=== PATIENT | male | born 1940 | race Caucasian/White ===

== ENCOUNTER 2017-03-18 13:00 | Inpatient (IN) | payer MEDICARE, OTHER ==
[~2017-03-18] VITALS: Ht 152.4 cm; Wt 57.9 kg
--- NOTE | ~2017-03-18 | ECHO ---
Transthoracic Echocardiography Report (TTE) Demographics Patient Name SALEEM SOLARES Date of Study 03/19/2017 Patient Number [id number] Visit Number [id number] Date of 1940 Room Number [id number] Gender Male Number Age 76 year(s) Referring Myles Chang Hiv/Aids Care Nurse Yesica Chinchilla RVT Physician Physician Interpreting Bryson Warren Carding Supervisor Physician A Supervising Ordering Myles Chang MD/MLP Physician MD Nurse Stress Blue Print Control Clerk Conclusions Contractility Score Summary Global Left Ventricular Hypokinesis was noted. Summary Technically difficult exam. The estimated left ventricular ejection fraction is 20-25%. Diastolic assessment reveals Grade I diastolic dysfunction. Large vegetation on the mitral valve especially the posterior leaflet Mild to moderate mitral annular calcification. Mild to moderate calcification of the mitral valve. Mild mitral regurgitation by color Doppler. Procedure Type of Study TTE procedure:2D Echocardiogram. Procedure Date Date: 03/19/2017 Start: 10:34 AM Study Location: Inpatient Portable Technical Quality: Limited visualization due to patient immobility. Indications:CVA. Appropriate Use Criteria: 0 Patient Status: Routine HR: 90 bpm M-Mode/2D Measurements LV Diastolic Dimension: 3.73 cm LV Systolic Dimension: 2.98 cm Cardiac Output: 3.19 l/min AV Cusp Separation: 1.2 cm LVOT: 1.9 cm RV Base: 2.77 cm LVOT VTI: 12.5 cm RV Mid: 2.59 cm LV Stroke volume: 35.42 ml TAPSE: 1.56 cm TDI-S': 17.4 cm/s Doppler Measurements AV Peak Velocity: 1.45 m/s MV Peak E-Wave: 0.7 m/s AV Peak Gradient: 8.41 mmHg MV Peak A-Wave: 0.88 m/s AV Mean Gradient: 3 mmHg MV E/A Ratio: 0.79 LVOT Peak Velocity: 0.78 m/s MV P1/2t: 53 msec E' Septal Velocity: 0.05 m/s A' Septal Velocity: 0.09 m/s E' Lateral Velocity: 0.08 m/s A' Lateral Velocity: 0.11 m/s Findings Left Ventricle Diastolic assessment reveals Grade I diastolic dysfunction. Right Ventricle Normal right ventricle structure and function. Left Atrium Normal left atrial size. Right Atrium IVC measures .91 cm with inspiratory collapse. Mitral Valve Large vegetation on the mitral valve especially the posterior leaflet Mild to moderate mitral annular calcification. Mild to moderate calcification of the mitral valve. Mild mitral regurgitation by color Doppler. Aortic Valve The aortic valve was not well imaged. Tricuspid Valve Normal tricuspid valve structure and function. Pulmonic Valve The pulmonic valve is not well visualized. Pericardial Effusion No pericardial effusion. Miscellaneous Visualized portions of the aortic root and ascending aorta appear normal in size. Pleural Effusion No evidence of pleural effusion. Contractility Score LV regional wall motion:(0-Non visualized 1-Normal 2-Hypokinesis 3-Akinesis 4-Dyskinesis 5-Aneurysm) Signature dtt: Hugh Massey dtd: 03/19/17 1034 Physician Self Edit
--- NOTE | ~2017-03-18 | HP ---
PATIENT'S NAME: SALEEM SOLARES [facility] AGE: 76 Y [address] [place]: [id number] [address] LOCATION: [facility] ADMIT DATE: 03/18/2017 History & Physical DISCHARGE DATE: FAMILY PHYSICIAN: PHYSICIAN, UNKNOWN ATTENDING PHYSICIAN: STELLA BEST DATE OF SERVICE: CHIEF COMPLAINT: CVA. HISTORY OF PRESENT ILLNESS: The patient is a 76-year-old gentleman with a recent history of stroke, history of lung nodules suspicious for malignancy, tobacco use, with possible COPD and recently diagnosed hypertension, who presents here from [place] with a CVA. The patient was recently diagnosed with transient speech difficulty and left hand numbness and poor coordination. CT showed possible stroke and was discharged to home with aspirin and blood pressure medications. However, today he presents to [facility] with right-sided weakness. Apparently from the chart, the patient was found to be in good health around 10:30 p.m. yesterday. Around 7:00 a.m. this morning, he was found by a family member to have aphasia and right upper extremity weakness. The patient was brought into the emergency department and had a CT head done that shows stable left posterior parietal occipital infarction and left cerebral infarction. The patient was transferred to our hospital for further workup. The patient is currently aphasic and is not able to talk. The patient responds yes or no. Apparently, the patient has not being following doctors since his last visit with his CVA like symptoms on the 15 of March. The patient was discharged to home with low-dose aspirin. However, when asked if patient took his medication after he was discharged from the hospital, he denies of taking it. The patient also was found to have a spiculated lesion in the left suprahilar region consistent with malignancy, encasement of the left upper lobe bronchus was also present. This is secondary to left hilar mass and adenopathy. Also shows emphysematous changes. This CT was done as a screening due to tobacco use. The patient is nonverbal but, however, follows commands. He denies any headache, chest pain, shortness of breath, fever, productive cough, abdominal pain, nausea, vomiting, diarrhea, weight loss, weight gain, night sweats, or poor appetite. FAMILY HISTORY: Father at age 73 due to cancer. SOCIAL HISTORY: He smokes every day. He has fifty years pack per year smoking history. PATIENT'S NAME: SALEEM SOLARES [facility] AGE: 76 Y [address] ROOM: [id number] [place], [place] [address] LOCATION: [facility] ADMIT DATE: 03/18/2017 History & Physical DISCHARGE DATE: FAMILY PHYSICIAN: PHYSICIAN, UNKNOWN ATTENDING PHYSICIAN: STELLA BEST PAST MEDICAL HISTORY: 1. Recent diagnosis of lung mass suspicious for cancer. 2. Recent diagnosis of hypertension. 3. Recent diagnosis of CVA. 4. History of abdominal aortic aneurysm. All these were found from the chart that was sent from [facility]. PAST SURGICAL HISTORY: No surgical history. REVIEW OF SYSTEMS: All systems have been reviewed and are negative except for what I mentioned in the HPI. MEDICATIONS: Currently not taking any medication. PHYSICAL EXAMINATION: VITAL SIGNS: Blood pressure 136/71, pulse of 79, respiratory rate of 15, and saturating 96% on room air. GENERAL APPEARANCE: The patient is cachectic, lying on bed. HEENT: Head; normocephalic and atraumatic. Eyes; extraocular muscles intact. Nose; no nasal discharge. Ears; no ear discharge. Oral Cavity; moist oral cavity. LUNGS: Clear to auscultation bilaterally. HEART: Regular rate and rhythm. No murmurs, rubs, or gallops. ABDOMEN: Soft, nontender, and nondistended. Bowel sounds present. SKIN: Warm to touch. MUSCULOSKELETAL: Range of motion intact. No obvious joint effusion noted. HYDROGEOLOGIST: The patient is aphasic. NEUROLOGIC: Right upper extremity strength is 3 to 4/5. Right lower extremity strength is 4/5. LABORATORY DATA AND IMAGING STUDIES: Labs done from the outside hospital shows BUN of 20, creatinine of 1.5, chloride of 100, potassium 4.1, and sodium 135. Hemoglobin A1c of 5.3. CBC shows WBC of 8.6, hemoglobin of 10.8, MCV of 82.3, and platelets of 55,000. Telemetry shows normal sinus rhythm. A CT done at the outside hospital shows stable left posterior parietal/occipital infraction and left cerebellar infarction. ASSESSMENT AND PLAN: [facility] 76 Y [address] ROOM: [id number] [place], [place] [address] LOCATION: [facility] ADMIT DATE: 03/18/2017 History & Physical DISCHARGE DATE: FAMILY PHYSICIAN: PHYSICIAN, UNKNOWN ATTENDING PHYSICIAN: STELLA BEST 1. Cerebrovascular accident. The patient with a recent history of transient ischemic attack/cerebrovascular accident, who was not taking his required medication, who presents here with aphasia and right upper extremity weakness. The patient is to be on tPA therapy. NIH Stroke Scale of 4 currently. To acquire MRI of the brain for further investigation. Also acquire MRA of the brain and carotid Doppler. I will also acquire echocardiogram. We will keep the patient on telemonitor. Etiology is most likely secondary to embolic due to its distribution. We will start aspirin and Lipitor 80 mg. Neurological checks every 4 hours, and we will allow permissive hypertension. Physical therapy, occupational therapy, and speech therapy. 2. Lung mass. The etiology is most likely secondary to malignancy as the patient has a history of smoking. This to be evaluated as outpatient when patient is stable and okay to be discharged from cerebrovascular accident standpoint. 3. History of recent diagnosis of hypotension. We will hold blood pressure medication for now for permissive hypertension. 4. Tobacco use. We will offer nicotine. 5. Thrombocytopenia. Etiology unknown. Questionable, if the patient has a history of alcohol use. Currently; no signs of bleeding. We will follow CBC daily. 6. Severe protein-calorie malnutrition most likely secondary to malignancy and/or chronic obstructive pulmonary disease. 7. Chronic obstructive pulmonary disease. At least on CT done shows some emphysematous changes which I highly suspect that patient has a history of tobacco use. We will have albuterol as needed. Greater than 70 minutes were spent on patient's care. Greater than 50% of the time was spent on chart, the evaluation and discussion with the patient. The patient is aphasic, but, however, is able to answer questions adequately with yes or no. Discussion made about code status. Code status on admission; DNR/DNI. MD SUSU BOWEN/brigitte /[id number] D: [id number] T: [id number] HISTORY & PHYSICAL
--- NOTE | ~2017-03-18 | CON ---
PATIENT'S NAME: SALEEM SOLARES [facility] AGE: 76 Y [address] ROOM: [id number] [place], [place] [address] LOCATION: [facility] ADMIT DATE: 03/18/2017 Consultation DISCHARGE DATE: FAMILY PHYSICIAN: PHYSICIAN, NO ATTENDING PHYSICIAN: STELLA BEST REFERRING PHYSICIAN: RALPH JARAMILLO MD CARDIOLOGY CONSULTATION REQUESTING PHYSICIAN: Yue Nathan MD REASON FOR CONSULTATION: The reason is abnormal echocardiogram. HISTORY OF PRESENT ILLNESS: History was obtained from reviewing the chart, and the patient's daughter-in- law. His son was also present, but did not contribute much to the conversation. The information I got is that about 10 days ago, the patient had a neurological deficit with weakness and lack of fine motion of his left hand. This gentleman who had not been to a doctor in 47 years was evaluated in the emergency room at the [facility] and then released. Apparently, initial CT of the brain did not show any abnormalities. Subsequently, there was imaging evidence of several strokes. The patient was hospitalized for two days later on with the suspicion of urinary tract infection and then released. His daughter from [place] stayed with her father and she left early at 0430 hours yesterday morning. She did not wake Mr. Solares when she left. Around 7:00 a.m., his son and his [id number] came to the house and the patient was still in bed but woke up. However, they noticed that he had drooping of the right side of his mouth and could not move his right hand and he was totally aphasic. After that, he was taken to the local clinic and then transferred to the emergency room and then to [facility] for higher level of care. The original CT of the head was on March 11 and a repeat on March 15. The same day he had a CT of his lung for cancer screening which disclosed a spiculated mass in the left suprahilar region with encasement of the left upper bronchus and some lymphadenopathy. There was also incidental finding of an abdominal aortic aneurysm measuring 5.5 cm. The review of systems is difficult to be obtained. His son Julian lives in [place] and had not seen his father in about a year. They did notice that he had suffered some weight loss and according to the neighbor, he has been going downhill for the last month or so. There is no history of chills or fevers during this period. 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 PATIENT'S NAME: SALEEM SOLARES [facility] AGE: 76 Y [address] ROOM: [address] [address] LOCATION: [facility] ADMIT DATE: 03/18/2017 Consultation DISCHARGE DATE: FAMILY PHYSICIAN: PHYSICIAN, NO ATTENDING PHYSICIAN: STELLA BEST SOCIAL HISTORY: Lives alone. Smokes pack a day. He has a history of 50 pack-year smoking. No alcohol use is reported. There is no history of previous cardiac problems. When he presented at this time to medical facility, he was found to have hypertension in about 160 systolic. PHYSICAL EXAMINATION: GENERAL: Thin elderly gentleman. VITAL SIGNS: He is 5 feet 7 inches, weighs 58.1 kg. Blood pressure today is 106/64, pulse 99, and temperature 98.1. NECK: Shows no carotid bruits. CHEST: Very diminished breath sounds. HEART: Regular with a 4th heart sound. ABDOMEN: Soft, nontender. EXTREMITIES: Lower extremities; cachectic, no edema. CURRENT MEDICATIONS: 1. Protonix 40 mg IV daily. 2. Aspirin 81 mg daily. 3. Lipitor 80 mg daily. Outpatient medications were none, but he was given some Bactrim, at that time it was thought he had a urinary tract infection. LABORATORY DATA AND IMAGING STUDIES: Electrocardiogram yesterday shows sinus rhythm with relatively low voltage and interventricular conduction defect with a QRS of 128. Possible anteroseptal infarction, old. His echocardiogram interpreted by me shows estimated ejection fraction of 20% to 25%. There was a large vegetation of the mitral valve predominantly in the posterior leaflet. There was mild mitral regurgitation by color Doppler. Chest x-ray was unremarkable. Complete metabolic screen was notable for a GFR of 54. Complete blood count, WBC 16, hemoglobin 11, hematocrit 33, and platelets 73,000. IMPRESSION AND PLAN: Overall, this is a very difficult situation. The patient had a disabling stroke and he is in danger of having further events due to the large vegetation in his mitral valve. 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 The patient also has carcinoma of the lungs. He is in poor functional state. I doubt he is a candidate for mitral valve replacement. I will ask Dr. Bowman to evaluate him. Also probably needs to be seen by Oncology. He may be facing end-of-life issues here. I communicated that to his son and his [id number]. I will check some cardiac markers. Blood cultures are pending. Additionally has cardiomyopathy, probably ischaemic in nature. Thank you for allowing the [facility] to participate in the care PATIENT'S NAME: SALEEM SOLARES [facility] AGE: 76 Y [address] ROOM: [address] [address] LOCATION: [facility] ADMIT DATE: 03/18/2017 Consultation DISCHARGE DATE: FAMILY PHYSICIAN: PHYSICIAN, CHRIS ATTENDING PHYSICIAN: STELLA BEST of your patient. MELBAAYOTISLINDA SEPULVEDA MD PE/modl /[id number] d: 03/19/172056 t: 03/22/17 1015, CONSULTATION REPORT
--- NOTE | ~2017-03-18 | CON ---
PATIENT'S NAME: SALEEM SOLARES [facility] AGE: 76 Y [address] ROOM: [place] [id number] [facility] ADMIT DATE: 03/18/2017 Consultation DISCHARGE DATE: FAMILY PHYSICIAN: PHYSICIAN, NO ATTENDING PHYSICIAN: STELLA BEST REFERRING PHYSICIAN: RALPH JARAMILLO MD SUBJECTIVE: This pleasant, but unable to speak 76 years old gentleman is referred for rehab evaluation. [facility] admission, admitted on 03/18/2017, with right-sided weakness reportedly. He has been found to have suspicions lung nodule, possible cancer. He is a chronic smoker. He had recently been seen with signs and symptoms of stroke which resolved with left-sided weakness. He is at this time around, markedly weak in the right upper and lower extremity. Right upper extremity much more involved with expressive aphasia and some little receptive aphasia needing on and off modeling. He is also having a right visual field cut and neglect and has some right facial droop. He has some delayed movement of the right tongue. CT scan reportedly showed left parietal occipital infarct and left cerebral ischemia. Now, he is alert, can follow instructions. Sometimes needs cuing. OBJECTIVE: VITAL SIGNS: Blood pressure 126/76, temperature 99.6, pulse 74, and respiration rate 20. He is 5 feet 7 inches tall and weighs 58.1 kg. He can move right lower extremity at this time, with a muscle strength of about 3+ and right upper extremity is about 1/5. Neurologic: Otherwise intact. He has good bowel and bladder control. Deep tendon reflexes are present and equal throughout. He has been diagnosed with abdominal aortic aneurysm. MEDICATIONS: At the present time, he is on the following medications. 1. Aspirin. 2. Albuterol. 3. Labetalol. PATIENT'S NAME: SALEEM SOLARES [facility] AGE: 76 Y [address] ROOM: [id number] [place] [id number] [facility]: [facility] ADMIT DATE: 03/18/2017 Consultation DISCHARGE DATE: FAMILY PHYSICIAN: PHYSICIAN, NO ATTENDING PHYSICIAN: STELLA BEST 4. Lipitor. 5. Protonix. ASSESSMENT AND PLAN: We will start him on PT, OT, and Speech. We will keep him n.p.o. until we know how he swallows and if he is safe or not. Please see my orders. At the present time, I feel this gentleman is making some progress, however, we will continue to work with him until he is able to come to intensive rehabilitation for about 2 weeks to 3 weeks. We will do electric stimulation to selected muscles and please see the orders. I am ready to explain all the above to his family. I did try to explain to him as much as possible. He nodded understanding. Thank you for this referral. I plan to take him to rehab when he is stable. MD THOMAS ROMO/modl /[id number] d: 03/19/17 1331 t: 03/20/17 1313, CONSULTATION REPORT
--- NOTE | ~2017-03-18 | DS ---
PATIENT'S NAME: ANICETO SOLARES [facility] AGE: 76 Y [address] ROOM: [id number] [place], [place] [address] LOCATION: [facility] ADMIT DATE: 03/18/2017 Discharge Summary DISCHARGE DATE: FAMILY PHYSICIAN: PHYSICIAN, NO ATTENDING PHYSICIAN: Joan Bueno PRINCIPAL DIAGNOSIS: Acute stroke. SECONDARY DIAGNOSES: 1. Cardiomyopathy, etiology unknown at this point. 2. 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 3. Very likelihood of stage IIIA lung cancer. HOSPITAL COURSE: A 76-year-old gentleman with a past medical history of hypertension, lifelong smoking presented to [place] about 10 days ago with weakness on his left-side and was diagnosed with a right-sided ischemic stroke. He was sent home without any further workup with some aspirin. While he was recovering from the stroke, he had another stroke and had very dense right-sided hemiparesis, aphasia, and right-sided facial droop. He was transferred here for further medical care. He was not a candidate for tPA. MRI was done, which showed left-sided ischemic stroke. On further evaluation of that, an echocardiography was done, which showed a large mitral valve vegetation and a depressed ejection fraction about 20%. In the emergency department in [place], the CAT scan of the chest was also done, which revealed multiple hilar lymph nodes and mass on the left lobe, which was suggestive of primary lung cancer with likely metastasis. In this course of the hospitalization, Neurology consultation was obtained. They did not recommend any anticoagulation at this point. A Cardiothoracic Surgery consultation was obtained and they deemed him not a very good candidate for mitral valve replacement at this point given his current comorbidities as well as likely diagnosis of lung cancer. Oncological consultation was made and I discussed the case with Dr. Gale. She brought up the idea that if he recovers from this and the mitral valve can be taken care of about 6-8 weeks later. A PET scan can be done, a bronchoscopy can be done for a biopsy and a diagnosis and chemoradiation therapy can be implied. I also discussed the current condition and the patient being not a great candidate for cardiothoracic surgery. This all was discussed with the patient son Julian, [id number], and daughter Sadia in detail given the stroke, risk of getting further stroke, the risks of Cardiothoracic surgery and him being not a very good candidate and his very likely diagnosis of lung cancer and then undergoing chemoradiation therapy for that. The patient Aniceto at this point just want to focus on his comfort and would not like to undergo any aggressive heroic measures at this point and he wants him try rest of his life. Today, we made this decision and they are looking into nursing facility near [place], which he can be close to his daughter Sadia. He is still getting antibiotics PATIENT'S NAME: ANICETO SOLARES [facility] AGE: 76 Y [address] ROOM: [address] [address] LOCATION: [facility] ADMIT DATE: 03/18/2017 Discharge Summary DISCHARGE DATE: FAMILY PHYSICIAN: PHYSICIAN, NO ATTENDING PHYSICIAN: Joan Bueno at this point and that still needs to be at rest. Further management will be carried on by the next physician who is in care of Aniceto tomorrow. Medications will also be addressed on discharge when he is able to go to a nursing facility. MD KENDALL INMAN/brigitte /[id number] d: 03/22/17 0141 t: 03/27/17 0911, DISCHARGE SUMMARY
--- NOTE | ~2017-03-18 | CON ---
PATIENT'S NAME: SALEEM SOLARES [facility] AGE: 76 Y [address] [place]: [id number] [address] LOCATION: [facility] ADMIT DATE: 03/18/2017 Consultation DISCHARGE DATE: FAMILY PHYSICIAN: PHYSICIAN, UNKNOWN ATTENDING PHYSICIAN: STELLA BEST DATE OF CONSULTATION: 03/19/2017 REFERRING PHYSICIAN: RALPH JARAMILLO MD I was asked to see this patient in Teleneurology consultation. Consultation was performed with assistance of nurse practitioner, Miriam Nina, on 03/19/2017. 35 minutes spent reviewing chart with nurse practitioner, repeating mackenzie portions of history and examination. Plan of care was discussed with the family and nursing staff at bedside. I agree with the discussed assessment and plan of care. Stevo Gu MD Neurology Telespecialist Services MD BYRON AMADOR/brigitte /[id number] d: t: 03/19/17 1113, CONSULTATION REPORT
--- NOTE | ~2017-03-18 | ENPV ---
Carotid Duplex Study Demographics Patient Name SALEEM SOLARES Date of Study 03/19/2017 Patient Number [id number] Gender Male Date of 1940 Age 76 Visit Number [id number] Height 67 Accession Number [id number] Weight 127 Referring Myles Dumont MD Physician Physician Physician Ordering Myles Chang Demand Planner Physician Enrollment Advisor Yesica Chinchilla [facility] Conclusions Summary The right internal carotid artery has mild, 1-39%, plaque and stenosis. The right vertebral artery is present with antegrade flow. The left internal carotid artery has mild, 1-39%, plaque and stenosis. The left vertebral artery is present with antegrade flow. Procedure Type of Study: Cerebral:Carotid, Carotid Doppler Bilateral. Indications for Study:Stroke. Appropriate Use Criteria:9 Patient Status:Routine. Study Location:Inpatient Portable. Technical Quality:Adequate visualization. Velocities are measured in cm/s ; Diameters are measured in cm Carotid Right Measurements Carotid Left Measurements + +--------+--------+ + + + +--------+ --------+ + + !Location !PSV !EDV !Angle !%Stenosis ! !Location !PSV ! EDV !Angle !%Stenosis ! + +--------+--------+ + + + +--------+ --------+ + + !Prox CCA !49 !11 !46 ! ! !Prox CCA !53 ! 12 !48 ! ! + +--------+--------+ + + + +--------+ --------+ + + !Dist CCA !58 !24 !56 ! ! !Dist CCA !48 ! 11 !48 ! ! + +--------+--------+ + + + +--------+ --------+ + + !Prox ICA !62 !28 !56 ! ! !Prox ICA !52 ! 21 !48 ! ! + +--------+--------+ + + + +--------+ --------+ + + !Mid ICA !75 !30 !50 ! ! !Mid ICA !80 ! 28 !48 ! ! + +--------+--------+ + + + +--------+ --------+ + + !Dist ICA !75 !28 !50 ! ! !Dist ICA !61 ! 25 !36 ! ! + +--------+--------+ + + + +--------+ --------+ + + !Prox ECA !66 ! !56 ! ! !Prox ECA !76 ! !58 ! ! + +--------+--------+ + + + +--------+ --------+ + + !Vertebral !36 ! !46 ! ! !Vertebral !30 ! !60 ! ! + +--------+--------+ + + + +--------+ --------+ + + !Subclavian !77 ! ! ! ! !Subclavian !83 ! ! ! ! + +--------+--------+ + + + +--------+ --------+ + + - There is antegrade vertebral flow noted on the right side. - There is antegrade verte bral flow noted on the left side. - Add'l Measurements:ICAPSV/CCAPSV 1.54.ICAEDV/CCAEDV 2.67. - Add'l Measurements:ICAPS V/CCAPSV 1.5.ICAEDV/CCAEDV 2.42. Impressions Right Impression There is a significant amount of irregular heterogeneous plaque in the right carotid bifurcation . Left Impression There is a significant amount of irregular heterogeneous plaque in the left carotid bifurcation . Signature dtt: BETH CLINE dtd: 03/19/17 1058 Physician Self Edit
--- NOTE | ~2017-03-18 | CON ---
PATIENT'S NAME: SALEEM SOLARES [facility] AGE: 76 Y [address] ROOM: [id number] [place], [place] [address] LOCATION: GICU ADMIT DATE: 03/18/2017 Consultation DISCHARGE DATE: 03/24/2017 FAMILY PHYSICIAN: CHRIS GARCÍA ATTENDING PHYSICIAN: Joan Bueno DATE OF CONSULTATION: 03/20/2017 REFERRING PHYSICIAN: Jaylon Morales MD REFERRING PROVIDER: Joan Bueno MD LOCATION: ICU, room [facility]. CHIEF COMPLAINT: Palliative care referral for goals of care conversation. HISTORY OF PRESENT ILLNESS: The patient is a 76-year-old male who was admitted from the [facility] with stroke-like symptoms. Apparently, approximately 10 days ago, the patient had experienced some left-sided weakness, was diagnosed with right- sided ischemic stroke, and was sent home on aspirin. While at home, he developed very dense right-sided hemiparesis, aphasia, and right-sided facial droop. He re-presented to [facility] and was transferred here. He was not a candidate for tPA. An MRI was completed, which showed left-sided ischemic stroke. As part of his workup, he did undergo an echo which showed a large mitral valve vegetation with a depressed ejection fraction of 15% to 20%. While also in [place], he underwent a CT scan of the chest which revealed multiple hilar lymph nodes and a mass in the left lobe suggestive of primary lung cancer with likely metastasis. He also has a history of COPD, hypertension, and a life-long smoker. The patient was seen by cardiothoracic surgeon, and it was deemed he was not a very good candidate for mitral valve replacement given his comorbidities and likely metastatic cancer diagnosis. At the time of my consultation, the patient is seen in the intensive care unit. He is aphasic, but able to answer yes and no questions accurately with a nod of the head. He denies pain, denies shortness of breath, denies chest pain, and is able to ambulate in the hallway with standby assist. 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 PAST MEDICAL HISTORY,: The patient really has not sought medical care in the last 47 years. He does have a history of COPD and hypertension. Also, recent diagnosis of CVA and PATIENT'S NAME: SALEEM SOLARES [facility] AGE: 76 Y [address] ROOM: [id number] [place], [place] [address] LOCATION: GICU ADMIT DATE: 03/18/2017 Consultation DISCHARGE DATE: 03/24/2017 FAMILY PHYSICIAN: PHYSICIAN, NO ATTENDING PHYSICIAN: Joan Bueno A history of abdominal aortic aneurysm. MEDICATIONS: The patient was not on any home medications. ALLERGIES: NO KNOWN ALLERGIES. SOCIAL HISTORY: The patient is . His at home on hospice approximately 2 years ago. He has 3 children; 2 daughters and a son. He is a current smoker and has done so for most of his entire adult life. No alcohol use. FAMILY HISTORY: His father had lung cancer. His mother had a history of mental illness. REVIEW OF SYSTEMS: GENERAL: Family reports the patient's weight has been decreasing in the last few months, but are unable to quantify. Appetite has been down, though daughter does report that when she was at home the last few days, she was able to assist him with feeding, and he ate fairly well. No recent fever, chills, or night sweats. Denies fatigue. HEENT: Normal. Does have some visual loss. Denies a headache. RESPIRATORY: Denies shortness of breath or cough. CARDIOVASCULAR: No chest pain, pressure, or palpitations. No peripheral edema. GASTROINTESTINAL: No nausea, vomiting, diarrhea, or constipation. No blood in the stools. Did not have chewing or swallowing problems prior to this and is currently on a pureed and thickened-liquid diet. GENITOURINARY: No dysuria. He has had some incontinence here at the hospital. MUSCULOSKELETAL: Denies any joint swelling or joint pain. He is able to ambulate with standby assist. NEUROLOGICAL: Denies numbness or tingling. No seizures. INTEGUMENTARY: No rashes or open areas. PSYCHIATRIC: Denies feeling overly depressed or anxious. Denies hallucinations. Denies insomnia. PHYSICAL EXAMINATION: VITAL SIGNS: Blood pressure 103/67, heart rate 86, temperature 98.2, respirations 20, and O2 saturation is 97% on room air. GENERAL: An alert, oriented, aphasic, elderly, white male who is sitting up in the recliner. Does not appear to be in any acute distress. Answers yes and no questions with a shake or nod of his head. HEENT: Normocephalic, atraumatic. Pupils are equal and reactive to light. Sclerae are anicteric. Conjunctivae pink. Tongue and mucous membranes are moist and pink. Dentition is adequate. PATIENT'S NAME: SALEEM SOLARES [facility] AGE: 76 Y [address] ROOM: [place] [address] LOCATION: GICU ADMIT DATE: 03/18/2017 Consultation DISCHARGE DATE: 03/24/2017 FAMILY PHYSICIAN: PHYSICIAN, NO ATTENDING PHYSICIAN: Joan Bueno CARDIOVASCULAR: Heart tones are irregularly irregular. I am not able to note a murmur. RESPIRATORY: Respirations are regular and nonlabored, diminished bilaterally. GASTROINTESTINAL: Abdomen is soft and nontender. Bowel sounds are present. MUSCULOSKELETAL: No significant joint deformities. Peripheral pulses are strong and equal bilaterally. There is no clubbing, cyanosis, or edema. SKIN: Warm and dry. No unusual lesions. NEUROLOGICAL: He has significant aphasia and is only able to answer yes and no questions, but does do so appropriately. Does have some right-sided weakness. Does have gross movement of upper and lower extremities. He is able to ambulate in the hallway with standby assist today. IMPRESSION AND PLAN: 1. Aphasia. 2. Weakness. He has been working with PT and OT. 3. Code status. The patient is do not resuscitate/do not intubate, and his family is helping him to sign power of immigration attorney paperwork today. I visited with the patient and his family and introduced the role of Palliative Care for goals of care conversation and education on current situation. Reviewed their understanding of the situation and his condition. The patient shakes his head that he has somewhat of an understanding of what is going on, though is not fully sure. Did go through and review things with him once again after which he indicates understanding. At this current time, we are awaiting to hear from Oncology before making any big major decisions, but did visit with the family on options as far as placement near home or closer to where the kids are and how his goals of care will affect when and where he can go somewhere. Talked about the possibility of undergoing some rehab plus or minus cancer treatment, but will have to hear further from Oncology. Discussed how his treatment decisions will affect where he is able to go for rehabilitation. We will wait to hear from Oncology before making any further major decisions in regard to this. Did visit with the patient though, and he does indicate that quality of life is much more important than quantity. I am also told that the patient's daughter from [place], who used to live near the patient, will be here later this evening and would also like to be involved in these goals of care conversation. So, we will plan to follow up for further conversations in the next day or two. Answered family's questions to the best of my ability. Total visit was 50 minutes, greater than 50% of this time was spent providing education and counseling. Thank you for allowing me to assist this patient and his family. PATIENT'S NAME: SALEEM SOLARES [facility] AGE: 76 Y [address] ROOM: [place] [address] LOCATION: [facility] ADMIT DATE: 03/18/2017 Consultation DISCHARGE DATE: 03/24/2017 FAMILY PHYSICIAN: , CHRIS ATTENDING PHYSICIAN: Joan Bueno INDU CHANEL NP FOR MD BEAN GALVEZ/cuatel /[id number] d: 03/28/17 1129 t: 04/17/17 0856, CONSULTATION REPORT
--- NOTE | ~2017-03-18 | CON ---
PATIENT'S NAME: SALEEM SOLARES [facility] AGE: 76 Y [address] ROOM: [id number] [place], [place] [address] LOCATION: GICU ADMIT DATE: 03/18/2017 Consultation DISCHARGE DATE: FAMILY PHYSICIAN: PHYSICIAN, NO ATTENDING PHYSICIAN: STELLA BEST DATE OF CONSULTATION: 03/19/2017 REFERRING PHYSICIAN: RALPH JARAMILLO MD NEUROLOGICAL CONSULTATION DATE AND TIME: On 03/19/2017 at 10:45 a.m. CHIEF COMPLAINT: CVA. HISTORY OF PRESENT ILLNESS: This is a 76-year-old gentleman with a recent history of stroke. He also has a history of lung nodules that are suspicious for malignancy. His prior medical history includes tobacco use and COPD with recently diagnosed hypertension. He presents here from [place] with a CVA. He was recently diagnosed with transient speech difficulty and left hand numbness and poor coordination. The CT in [place] did show a possible stroke, and he was discharged to home with aspirin and blood pressure medications. Today, he presented again to the hospital with right-sided weakness. He was found to be in good health around 1030 hours yesterday, but around 0700 hours this morning, he was found by a family member to have aphasia and right upper extremity weakness. He was brought into the emergency department and had a CT head done that did show a left posterior parietal occipital infarction. The patient was transferred to [facility] for further stroke workup. Upon our examination, the patient is aphasic and not able to talk so we were relying on his family, and the patient nodding yes and no, and also the chart from the transferring hospital. He actually had CVA symptoms on the 15 of March. He was sent home with low-dose aspirin. He denies taking any of this aspirin. At that time, he was also found to have a spiculated lesion in the left suprahilar region consistent with malignancy, encasement of the left upper lobe bronchus was also present. He also has a left hilar mass and adenopathy. His films also suggest emphysematous changes. The CT was done as a screening due to his tobacco use. The patient denies any headache, chest pain, shortness of breath, vision issues, fever, cough, abdominal pain, nausea, vomiting, diarrhea, weight loss, weight gain, night sweats, or poor appetite. He has not traveled out of the country or had any ill contacts. He does agree to quite a bit of weight loss in the last 3 months, however, he is unable to quantify. PATIENT'S NAME: SALEEM SOLARES [facility] AGE: 76 Y [address] ROOM: [address] [address] LOCATION: [facility] ADMIT DATE: 03/18/2017 Consultation DISCHARGE DATE: FAMILY PHYSICIAN: PHYSICIANCHRIS ATTENDING PHYSICIAN: STELLA BEST FAMILY HISTORY: His father was at age 73 due to cancer. SOCIAL HISTORY: He is an every day smoker. He has smoked for over 50 years. PAST MEDICAL HISTORY: 1. Recent diagnosis of lung mass suspicious for cancer. 2. Recent diagnosis of hypertension. 3. Recent diagnosis of CVA. 4. History of abdominal aortic aneurysm. PAST SURGICAL HISTORY: He has no past surgical history. REVIEW OF SYSTEMS: All systems were reviewed and are negative except for those mentioned in the HPI. MEDICATIONS: Although, he was sent home on metoprolol and Bactrim, I do not believe he was taking these medications. He denies taking his aspirin that was suggested. PHYSICAL EXAMINATION: VITAL SIGNS: His blood pressure is 145/72, pulse of 82, respiratory rate of 16, and saturating 96% on room air. GENERAL APPEARANCE: The patient is thin, well-groomed, and lying in bed. HEENT: His head is normocephalic and atraumatic. Eyes; his extraocular muscles seem intact. He is able to follow commands to perform these tests. LUNGS: Clear to auscultation bilaterally. HEART: Regular rate and rhythm. No murmurs, rubs, or gallops. ABDOMEN: Soft, nontender, nondistended with positive bowel sounds. NEUROLOGIC: His NIH Stroke Scale is as such; level of consciousness zero; current month and age 2; open and close eyes zero; best gaze 1; visual field testing zero; facial paresis 1; motor function left arm zero, motor function right arm 1; motor function left leg zero, motor function right leg 1; limb ataxia 1; sensory 1; best language 2; dysarthria 2; and extinction and inattention zero. Gait was not tested at this time. The patient did mobilize to the chair using a walker and physical therapy. LABORATORY DATA AND IMAGING STUDIES: Diagnostics include an MRI of the brain which shows a large area of abnormal signal showing diffusion restriction at the posterior left cerebral hemisphere, centered at the left parietal lobe involving predominantly white PATIENT'S NAME: SALEEM SOLARES [facility] AGE: 76 Y [address] ROOM: [address] [address] LOCATION: [facility] ADMIT DATE: 03/18/2017 Consultation DISCHARGE DATE: FAMILY PHYSICIAN: PHYSICIAN, NO ATTENDING PHYSICIAN: STELLA BEST. The involved area was about 8 cm anterior to posterior and 4 cm medial to lateral. Findings were consistent with acute ischemic infarct in the territory of the left middle cerebral artery. There were also several additional tiny areas of diffusion restriction seen at the cerebral hemispheres including small areas at the left frontal lobe on series 6, image 47. There were generalized atrophic changes with prominence of the ventricles, sulci, and CSF spaces. There were multiple areas of high T2 and FLAIR signal in the white matter of the cerebral hemispheres consistent with white matter small-vessel ischemic changes. There was a small area of encephalomalacia from old infarct in the periventricular white matter at the right parietal lobe best seen on T1 weighted imaging series 12, image 20. There were small areas of encephalomalacia from old infarct at the cerebellum. An MRA of the brain was also completed. There was a normal MRA appearances of the anterior circulation. The anterior cerebral artery and middle cerebral artery on the left and right were visualized with no vessel cut off or focal area of stenosis. There was no flow visualized in the superior portion of the left vertebral artery. This vessel could be hypoplastic or occluded. There was a dominant right vertebral artery which supplies the basilar. The posterior cerebral artery on the left and right visualized with no stenosis or vessel cut off identified, pending our echocardiogram and carotid results. Also pending are a lipid profile. ASSESSMENT AND PLAN: This gentleman has obvious diffusion weighted imaging areas on his MRI. The pattern is suspicious and with the lesions in his lungs, would recommend getting an MRI with contrast to rule out any sort of enhancing lesion. In addition, we will continue aspirin and statin for stroke therapy. Continue OT, PT, and speech to maximize the patient's function. We will certainly follow along on this case and address the results of the MRI with contrast. The results of the MRI and our thoughts were shared with the patient and his son and [id number]. The plan of care was also relayed to Dr. Nathan, the hospitalist. We would like to thank you for the opportunity to participate in this patient's care. We will follow along. NAEL ROCHA APRN FOR GIOVANY REBOLLEDO MD PP/modl /[id number] d: 03/19/17 1621 t: 03/28/17 1832, CONSULTATION REPORT
--- NOTE | ~2017-03-18 | DS ---
PATIENT'S NAME: SALEEM SOLARES [facility] AGE: 76 Y [address] ROOM: [id number] [place], [place] [address] LOCATION: [facility] ADMIT DATE: 03/18/2017 Discharge Summary DISCHARGE DATE: 03/24/2017 FAMILY PHYSICIAN: PHYSICIAN, NO ATTENDING PHYSICIAN: Joan Bueno DISCHARGE DIAGNOSES: 1. Lung mass with lymphadenopathy consistent with malignancy. 2. Endocarditis. 3. Acute systolic congestive heart failure. 4. Left posterior cerebral infarct. 5. Smoker. 6. Thrombocytopenia. PROCEDURES: None. REASON FOR ADMISSION: The patient had a recent history of stroke, lung nodule suspicious for malignancy, and a history of tobacco abuse. He was actually transferred to this facility for increased level of care. Because of repetitive nature of his strokes and a poor prognosis due to that, acute systolic heart failure with ejection fraction in the 20-30 range, his family is at this time determined that he would not want any further aggressive treatment. The patient himself has said he does not want to be poked anymore and does not want to experience discomfort. The result is that we have put him on comfort care level treatment and we will transfer him to residential for continued care. We will ask hospice to get involved. LABORATORY DATA: No blood sugars have been benign. His chemistries have showed low calcium, I am certain secondary to low albumin. The remainder of his chemistries had been benign with the exception of CRP at 10.2 and a proBNP of 7966. His troponin was elevated as well. Hematology showed a hemoglobin of 9.9 with a white count of only 10.5, platelets were low at 60. Blood cultures were negative. MRI showed a left posterior cerebral infarct. He also had a right parietal lobe subacute infarct. No midline shift. DISCHARGE INSTRUCTIONS: Medications will be for comfort and are listed on the nursing med recon form. Diet and activity will be as tolerated and purely for comfort. He is going to [facility]. Note that on exam today, his chest was raspy, but he was alert and nodded consent to the exam. His belly was nontender. Heart regular at this time. Note also that discharge took greater than 30 minutes. PATIENT'S NAME: SALEEM SOLARES [facility] AGE: 76 Y [address] ROOM: [id number] [place], [place] [address] LOCATION: GICU ADMIT DATE: 03/18/2017 Discharge Summary DISCHARGE DATE: 03/24/2017 FAMILY PHYSICIAN: CHRIS GARCÍA ATTENDING PHYSICIAN: Joan Bueno MD SELENA MILES/brigitte /[id number] d: 03/25/17 0204 t: 03/28/17 2121, DISCHARGE SUMMARY
--- NOTE | ~2017-03-18 | CON ---
PATIENT'S NAME: SALEEM [facility] AGE: 76 Y [address] ROOM: [id number] [place], [place] [address] LOCATION: [facility] ADMIT DATE: 03/18/2017 Consultation DISCHARGE DATE: FAMILY PHYSICIAN: PHYSICIAN, CHRIS ATTENDING PHYSICIAN: STELLA BEST DATE OF CONSULTATION: 03/20/2017 REFERRING PHYSICIAN: RALPH JARAMILLO MD REASON FOR CONSULTATION: The patient is a 76-year-old male, who was transferred from [facility] with acute ischemic stroke for further evaluation and management. Apparently a week prior to this stroke, the patient had a very small stroke and was not admitted to the hospital; however, he had transient issues with his speech apparently. Then, the following day, he was less alert and was admitted to the hospital on MondayMarch 10 with the UTI and was placed on the antibiotics. The patient was discharged and had been doing well. He was scheduled to have an outpatient screening CT scan because of his years of smoking cigarettes. On 03/15/2017, CT scan revealed a spiculated lesion in his right upper lobe 1.8 x 2.1 x 2.0 cm encasing the left upper lobe bronchus with questionable left hilar adenopathy and also prominent mediastinal adenopathy with an AP window node at 7 mm an a carinal node at 0.9 mm, and incidentally found he had an abdominal aortic aneurysm at 5.5 cm. This Monday on the , the patient got out of bed and went to visit his family that was staying with him, and his family noticed that he could not speak and he had a facial droop and weakness of his right arm. He was taken to [place], where CT showed an ischemic stroke and he was transferred to [facility] on that day. On 03/18, MRA showed no flow in the superior portion of the left vertebral artery and the MRI showed an acute left posterior cerebral infarct in the left middle cerebral artery distribution. He had a chest x-ray on 03/19, that was actually unremarkable. An echocardiogram on 03/19, showed an ejection fraction of 20- 25%, but it was a difficult study. He apparently did have an echo that showed a large vegetation on his mitral valve; however, I have not seen any written information in the patient's chart except in Dr. Bowman's note. The patient's daughter, who apparently lives in [place], visited him 2-3 months ago and she had told her brother that he had lost some weight in the past couple of months. The patient has complete expressive aphasia and is unable to verbalize anything. His son and [id number] state that he has had a cough for years and it seems to be worse this hospital stay, although he is on pureed diet and thickened liquids, and it could be attributable to his swallowing at this time. 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 [place]: [id number], [place] [id number] LOCATION: [facility] ADMIT DATE: 03/18/2017 Consultation DISCHARGE DATE: FAMILY PHYSICIAN: PHYSICIAN, NO ATTENDING PHYSICIAN: STELLA BEST to see a doctor since. PAST MEDICAL HISTORY: Besides his amputation, other than that is pretty unremarkable. MEDICATIONS: He was placed on Lipitor, aspirin, and Protonix just in the recent week. FAMILY HISTORY: Dad due to cancer at age 73. SOCIAL HISTORY: The patient lives alone. His 2 years ago and she had chronic medical problems for several years prior to her . He has a 50-plus pack year history of smoking. He does not consume alcohol. He has 3 children and 8 grandchildren, a daughter in [place], a daughter in [place], and a son in [place]. REVIEW OF SYSTEMS: Really unobtainable due to his expressive aphasia. PHYSICAL EXAMINATION: VITAL SIGNS: Temperature is 98.2, pulse 86, respirations 16, temperature is 97, O2 sats 97% on room air, blood pressure is 103/67. GENERAL: The patient is very alert, but has complete expressive aphasia. HEENT: No scleral icterus is present. Extraocular muscles appear to be intact. He does have a right facial droop. NECK: Supple. He does have 1 mobile small round lymph node in his left supraclavicular area that is approximately 2-3 mm. HEART: Muffled sounding, but regular. LUNGS: Clear to auscultation anteriorly. ABDOMEN: Soft and nontender. There is no organomegaly, masses, or tenderness present. EXTREMITIES: He has no peripheral edema. He can move his legs well. His left arm and hand is normal. Right hand and arm, he can move his arm; however, he has really little control of his arm and very little of his fingers. LABS: White count on 03/19, was 16.0, hemoglobin 11.2, platelet count is 73,000. Sodium 135, potassium 4.1, BUN is 20, creatinine is 1.3, albumin is 3.1. IMPRESSION: 1. Probable left upper lobe lung cancer, clinically it looks like a stage IIIA with mediastinal adenopathy; however, further staging would be necessary to determine that. 2. 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 Dr. Bowman, thoracic surgeon, PATIENT'S NAME: SALEEM [facility] AGE: 76 Y [address] ROOM: [place] [address] LOCATION: [facility] ADMIT DATE: 03/18/2017 Consultation DISCHARGE DATE: FAMILY PHYSICIAN: PHYSICIAN, NO ATTENDING PHYSICIAN: STELLA BEST states that at this point the patient is in no condition to have mitral valve repair, maybe per his daughter in-law could be 4-6 weeks before he would even consider that. 3. Ejection fraction 20-30% likely associated with this vegetation itself. 4. Large stroke with right-sided weakness and expressive aphasia. RECOMMENDATIONS: I talked with the patient and his son and [id number] about the tentative diagnosis. I told them that if this is a lung cancer, it is likely a stage IIIA; however, with it encasing his left upper lobe bronchus with his other medical illnesses, I would not likely plan on surgery as an option. Concurrent chemotherapy and radiation would be an option; however, I would not even consider that until his heart valve issue is taken care of and he gets some therapy to recover from his stroke. This could be anywhere between 6-8 weeks to even consider treating his lung issue, but his performance status actually is not that bad all things considered. I would recommend having a bronchoscopy with biopsy and a PET scan; however, I think it would be reasonable to wait even a month for that because we are definitely not going to do anything before that time and it kind of depends on how he recovers from everything else. It was very difficult to get a correct, even yes or no answer from the patient shaking and nodding his head whether he would even want to consider treating this if it was cancer or not. We will just kind of see how his more emergent issues with his stroke and his heart vegetation go and then we can follow along and readdress diagnosing and then staging his cancer down the line as an outpatient even. MD DALIA SHAHID/modl /[id number] d: 03/20/17 2327 t: 03/23/17 1414, CONSULTATION REPORT
[~2017-03-18 13:00] MED LIST: SULFAMETHOXAZO1 EACH PO
--- NOTE | 2017-03-18 17:22 | NUR ---
SIGNIFICANT EVENT: PATIENT TO ICU AT 1325. PATIENT'S LAST WELL KNOWN TIME IS 1030PM ON 03/17- WENT TO SLEEP, AT 0730AM OF 03/18 PATIENT UNABLE TO SPEAK, SIGNIFICANT R) SIDED WEAKESS. FAMILY TOOK PATIENT TO [facility], PATIENT TRANSFERED TO [facility] FOR HIGHER LEVEL OF CARE. PATIENT ALERT. OPENS EYES SPONT AND TO VOICE. PUPILS EQUAL AND REACTIVE. PATIENT NODS NO TO NUMBNESS, TINGLING, OR PAIN. NODS YES/ NO APPROPRIATELY TO ALL QUESTIONS. SEVERE EXPRESSIVE APHASIA NOTED. PATIENT FOLLOWS COMMANDS IN ALL 4 EXTREMTIIES. R) SIDE SIGNIFICANT WEAKER THAN L). PATIENT HAS BEEN IN SINUS THYRHM. HR 70-80S. PULSES PALPABLE THROUGHOUT. BP STABLE, SBP 110-130S. MAP>65. AFEBRILE. PATIENT ON ROOM AIR, SATS MID 90S. BOWEL SOUNDS PRESENT, NO BM, NPO. DID NOT PASS BEDSIDE SWALLOW ASSESSMENT. L) HAND PIV SALINE LOCKED. TELE NEUROLOGY CONSULT, TARAN ROCHA AWARE. FOLLOW UP: CONT TO MONITOR
[2017-03-18] MEDS ORDERED: TOPROL XL25 MG PO (18:07)
--- NOTE | 2017-03-19 04:49 | NUR ---
Significant Event: ALERT. APHASIC. NODS HEAD TO ANSWER QUESTIONS. FOLLOWS COMMANDS. R) SIDED WEAKNESS. ON RA. VSS. TMAX OF 99.6 THIS AM. ABLE TO PASS SWALLOW STUDY LAST EVENING. TOOK SIPS OF WATER AND MED WITHOUT DIFFICULTY. NPO SINCE THEN PER MD ORDER. INCONTINENT OF URINE AND STOOL. ADEQUATE UOP. BP DOWN TO 100'S X1, DR. DIAZ NOTIFIED, NO NEW ORDERS RECEIVED. BP BACK TO 110-120'S THIS AM. DENIES PAIN. PARTIAL BATH GIVEN. MRI OF BRAIN COMPLETE Follow up: ECHO AND CAROTIDS TODAY.
[2017-03-19 05:45] LABS: BASOPHIL # 0.1 K/uL (0.0-0.2); BASOPHIL % 0.6 %; EOSINOPHIL # 0.2 K/uL (0.0-0.5); EOSINOPHIL % 1.2 %; HEMATOCRIT 33.1 % (37.0-53.0); HEMOGLOBIN 11.2 g/dL (11.0-16.0); IMMATURE GRANULOCYTE # 0.1 K/uL (0.0-0.3); IMMATURE GRANULOCYTE % 0.6 %; LYMPHOCYTE # 1.8 K/uL (0.8-4.0); MCH 27.9 pg (27.0-34.0); MCHC 33.8 gm/dL (32.0-36.5); MCV 82.3 fl (83.0-98.0); MONOCYTE # 1.3 K/uL (0.0-1.0); MPV 10.3 fl (9.4-12.4); NEUTROPHIL # (ANC) 12.6 K/uL (1.4-9.0); NEUTROPHIL % 78.6 %; NRBC % 0 /100WBC (0-0.00); PLATELET COUNT 73 K/uL (150-450); RBC 4.02 M/uL (3.50-5.50); RDW-CV 14.6 % (11.9-14.6)
[2017-03-19 06:02] LABS: ALBUMIN 3.1 gm/dL (3.5-5.0); ANION GAP 15.1 (10.0-19.0); CALCIUM 8.6 mg/dL (8.5-10.5); CREATININE 1.3 mg/dL (0.6-1.3); POTASSIUM 4.1 mMol/L (3.7-5.1); TOTAL BILIRUBIN 0.9 mg/dL (0.0-1.5); TOTAL PROTEIN 7.4 g/dL (6.0-8.4)
--- NOTE | 2017-03-19 10:29 | NUR ---
CONSULT RECEIVED PER STROKE PROTOCOL. WILL PROVIDE DIET ED PRIOR TO DC APPROPRIATE.
[2017-03-19 14:31] LABS: BILIRUBIN URINE NEGATIVE (NEGATIVE); BLOOD URINE 250 /UL (NEGATIVE); COLOR URINE YELLOW (YELLOW); GLUCOSE URINE NEGATIVE (NEGATIVE); KETONE URINE 50 mg/dL (NEGATIVE); LEUKOCYTES URINE NEGATIVE /UL (NEGATIVE); NITRITE URINE NEGATIVE (NEGATIVE); PROTEIN URINE 30 mg/dL (NEGATIVE); SPEC GRAVITY URINE 1.025 (1.003-1.035); TURBIDITY URINE 1+ (CLEAR); UROBILINOGEN URINE NORMAL (NORMAL)
[2017-03-19 14:59] LABS: AMORPHOUS URINE 1+ (NEGATIVE); BACTERIA URINE FEW (NEGATIVE); EPITHELIAL URINE 0-2 #/HPF (NEGATIVE); RBC URINE 0-2 #/HPF (NEGATIVE); WBC URINE 0-2 #/HPF (NEGATIVE)
[2017-03-19 15:00] LABS: HYALINE CAST URINE 0-2 #/LPF (NEGATIVE)
--- NOTE | 2017-03-19 19:08 | NUR ---
Significant Event: Alert, nods head appropriately for orientaton questions, non-verbal, points to things to communicate. family @ bedside entire shift, IVF R)FA, incontinent at times, Lg loose BM per toilet, turns self in bed, 1 assist/gait belt, up in chair x2, CXR, ECHO, MRI completed. NIHSS=11, R)mouth droop, R)vision impaired, some RUE neglect/weakness, does not attempt to get OOB by self, lungs diminished, loose non-productive smoker's cough, sat 95% on RA, takes bites of diet 1:1 feeder, pureed/nectar thick liquids, Follow up: to consult for mitral valve vegetation
--- NOTE | 2017-03-20 07:17 | NUR ---
Significant Event: NO CHANES IN NEURO STATUS. CONTINUES TO BE APHASIC. TEMP 100.1 AT BEGINNING OF NIGHT. NOTIFIED DR. CHANDLER. GAVE 1L NS BOLUS. STARTED ZOSYN, VANCO. TEMP DOWN TO 98-99'S. HR 80-100'S. ON RA. INCONTINENT OF BM AND URINE X1. TO BATHROOM X1. 1PA WITH WALKER AND GAITBELT. NS AT 100ML/HR. DENIES PAIN. Follow up: DR. HUBER CONSULT TODAY.
--- NOTE | 2017-03-20 08:23 | NUR ---
A - PT ADMITTED W/ CVA. NO NEW LABS TODAY. NO EDEMA. DIET: PUREE W/ NECTAR LIQUIDS, 1:1 FEEDER. INTAKE 25%. EST NEEDS: 1474-8025 KCALS, 69-87 GM PROTEIN, 1 ML/KCAL FLUIDS. D - AT RISK W/ INADEQUATE ORAL INTAKE R/T DIFFICULTY SWALLOWING, DECREASED APPETITE AEB INTAKE RECORD. I - GOAL: 50% INTAKE BY NEXT REVIEW. M/E - 1) WILL SEND MIGHTY SHAKE W/ BF AND DINNER. 2) F/U IN 2-4 DAYS.
--- NOTE | 2017-03-20 13:15 | NUR ---
Introduced self and role of care management to patient, his son and DIL. Patient is aphasic, so conversation is with son and DIL. Patient lives alone at [place]. Son lives in [place] and a daughter lives in [place] and one in [place]. Daughter from [place] has been out of the country for a business trip and should be here tomorrow. Talked to them about skilled care, inpt rehab and [facility]. SHANELLE says he will need to go where medicare will pay. Explained to them medicare coverage and that they may need to begin medicaid application if they anticipate placement will be process improvement engineer. Told them can make a referral to [facility] staff and they can meet with family to review medicaid process, etc. They think daughter in [place] will probably want him to go to a facility in [place] as will be easier for her to visit and be involved with his care. They say his health issues have all shown up in the last couple of weeks. They say he has probably been over 40 years since he went to the doctor. Talked to Hetal on [facility] and they would potentially have a bed midweek if family and patient are interested in staying here. Will follow.
--- NOTE | 2017-03-20 13:51 | NUR ---
Significant Event:A/O X 3. Able to communicate with nods and hand gestures, unable to write, but can point to communication board. Completely aphasic. R) sided weakness, R) facial droop, drool at times. Mouth swabbed out. Ambulated in the room and up in the chair with 1 SBA, gait belt and walker, but the walker was not very useful, since patient can not grasp the right side. Ambulated in the dobson with therapy > 100 ft. NSR. Inspiratory wheezes, on RA. Fed 1:1 Pureed diet with nectar thick liquids. Incontinent of BM, wearing depend garment. NO void yet today, voided late yesterday 1100. Reports no pain. Dr Bowman here to consult. Family and patient deciding on plan of care. Oncology consult, Baljinder will come see later today after clinic. Teleneuro will follow. Follow up:Uninary retention. Bladder scan for no urine.
[2017-03-21 06:55] LABS: BASOPHIL # 0.1 K/uL (0.0-0.2); BASOPHIL % 0.9 %; EOSINOPHIL # 0.3 K/uL (0.0-0.5); EOSINOPHIL % 2.7 %; HEMATOCRIT 30.4 % (37.0-53.0); HEMOGLOBIN 9.9 g/dL (11.0-16.0); IMMATURE GRANULOCYTE # 0.1 K/uL (0.0-0.3); IMMATURE GRANULOCYTE % 0.6 %; LYMPHOCYTE % 18.7 %; MCH 27.4 pg (27.0-34.0); MCHC 32.6 gm/dL (32.0-36.5); MCV 84.2 fl (83.0-98.0); MONOCYTE # 1.1 K/uL (0.0-1.0); MONOCYTE % 10.3 %; MPV 9.4 fl (9.4-12.4); NEUTROPHIL % 66.8 %; NRBC % 0 /100WBC (0-0.00); PLATELET COUNT 60 K/uL (150-450); RBC 3.61 M/uL (3.50-5.50); RDW-CV 14.6 % (11.9-14.6); WBC 10.5 K/uL (4.0-11.0)
--- NOTE | 2017-03-21 06:58 | NUR ---
Significant Event: PATIENT IS ALERT, ABLE TO ANSWER QUESTIONS AND MAKE NEEDS KNOWN BY NODDING HEAD TO QUESTIONS. PLEASANT ET COOPERATIVE. INSP WHEEZE TO UPPER LOBES, DIM IN LOWERS, O2 SATS >90 ON RA. RIGHT FACIAL DROOP, NONVERBAL. RUE VERY WEAK, ABLE TO SLIGHTLY MOVE FINGERS. 1A WITH GAITBELT TO BR, LOOSE STOOLS X2. INCONTININET OF BLADDER. TOOK MEDS CRUSHED IN PUDDING, NECTAR THICK FLUIDS. SCATTERED BRUISING THROUGHTOUT. R)PIV INFUSES ABX Follow up:CONTINUE
[2017-03-21 07:13] LABS: ANION GAP 9.9 (10.0-19.0); CALCIUM 7.8 mg/dL (8.5-10.5); CREATININE 1.3 mg/dL (0.6-1.3); POTASSIUM 3.9 mMol/L (3.7-5.1)
--- NOTE | 2017-03-21 16:30 | NUR ---
Referral made this a.m. to [facility] with [facility] to meet with patient and family regarding medicaid application. Spoke with [facility] and she says family is wanting patient to have therapies and see if can get some strength back. At this time they are not looking at chemo, radiation or aggressive treatment for his heart. Spoke with son, SHANELLE and daughter Sadia from [place]. They and patient want him to go to a skilled facility and have therapies. Sadia lives in [place] and would like him to be in a facility close to her. She is not familiar with facilities in the area. Told her I will search to see what is in the area. Gathered list of facilities in the [facility] area. Daughter would like to start with referrals to [facility] and [facility] in [place]. Spoke with Karoline at [facility] and referral faxed. Left KARLIE for SW at [facility]. Will follow.
--- NOTE | 2017-03-21 18:51 | NUR ---
Significant Event: Alert. Follows commands and nods head appropriately. Has made some vocalizations including a couple of words today. Up in dobson with 1PA. Vital signs stable. Family present most of the day and working on plan of care. Follow up: continue
--- NOTE | 2017-03-22 05:03 | NUR ---
Significant Event: PATIENT IS ALERT, NONVERBAL BUT WILL NOD/SHAKE HEAD IN RESPONSE TO QUESTIONS ASKED. DENIES PAIN OR DISCOMFORT. FOLLOWS COMMANDS X4 EXTREMETIES, GROSS MVMNT NOTED ONLY IN LUE. L) FACIAL DROOPING. INCONTINENT OF URINE AT TIMES. VSS ON ROOM AIR. R) PIV PATENT, ABX INFUSING. 11 BEAT RUN OF VTACH PER TELEMETRY, SEE PRINTOUT FOR DETAILS. Follow up:PLACEMENT IN [place]
--- NOTE | 2017-03-22 15:22 | NUR ---
I did speak with a Waleska at [facility] and she states she mostly handles the LTC and not the skilled but she will call the admissions dean and forward everything to her. I did fax referral to [phone]. I then got a phone call from Elaine the coordinator [phone] and she states she got the information so at this time she really needs to the know the plan because this am pt had a change in condition. They do skill under Medicare part A for comfort cares for 14 days but they will also need a plan for after the 14 days and if it would be private pay, medicaid pending ? she states room and board with hospice is $270 a day. She states they do iv atb but would need a picc line as well. I explained I am hoping to know more later today or in the am. WIll continue to follow. I still have not heard from [facility] yet but will hold off on calling till I know a definate plan of care.
--- NOTE | 2017-03-22 15:33 | NUR ---
Significant Event: PT drowsy, arouses at times, does not follow commands, unable to sqeeze hands. Does shake head sometimes to questions but is more of a full body head shake-only very gross movements. Does moves bilateral legs and L)arm spontaneuosly but very jerky and only gross motor movements. VSS. PT has abnormal breathing at times, snoring respiratory, cheynes amos at times. Incontinent of bowel and bladder. PT is unable to eat, unable to open mouth or comprehend to take bites. R)AC patent, fluids running and antx. Awaiting other daughter to arrive, will possibly make patient full comfort cares. Follow up:
--- NOTE | 2017-03-22 16:33 | NUR ---
Introduced self and role of care management to daughter Onelia from [place] and Sadia from [place] is on her way. Pt did have a change in status this am and working with Franc[facility] from [facility]. I did touch base with Mallory [facility]. WIll assist as needed.
--- NOTE | 2017-03-23 04:32 | NUR ---
Significant Event: Patient alert. Nods appropriately. Non-verbal. Follows most commands. Moves all extremities spontaneously. Room air. Tachypneic at times. BS active. BM this shift. Incontinent of bowel and bladder. PIV running NS at 100 ml/hr. Intermittent ABX. Follow up:Turn q2
--- NOTE | 2017-03-23 07:28 | NUR ---
A - NUTRITION F/U. PT NON-VERBAL. NO NEW LABS. NO EDEMA, WT STABLE FROM ADMIT. DIET: PUREE W/ NECTAR LIQUIDS. PT IS NOT EATING. FAMILY TO DECIDE ON COMFORT CARES. D - AT RISK W/ INADEQUATE ORAL INTAKE R/T DECREASED APPETITE AEB INTAKE RECORD. I - GOAL: ALTERNATE ROUTE FOR FEEDING IF DESIRED. M/E - WOULD REC TF TO MEET PT NEEDS IF PT IS NOT MADE COMFORT CARES. PLEASE CONSULT IF THIS IS DESIRED. WILL F/U IN 3-5 DAYS.
--- NOTE | 2017-03-23 10:00 | NUR ---
I met with daughter Alexandria along with Francia with pallative care. I did talk with them on what the plans are for their father if we are continuing treatment or just want to make him comfortable. They state at this point to keep him comfortable. I explained that means we would not continue therapy or the iv antibiotics and they did understand. I did tell them Jennifer faxed referral to [facility] and I have not heard from them but I also did know have a definate plan but I spoke with Davi with [facility] and they can do comfort cares under skilled Medicare A for 14 days but after that they will need to be private pay or until Medicaid is active and the cost is $270 a day. Francia at this time does not think he will make it that long but family is aware or I could look piggyback clerk to his home, we discussed going home with them caring for him as well. They both state it would be easier in [place] and the [place] sounds like an idea as well and maybe after the 14 days if still here go home or yes pay. They both told be to purse the [place] that is sounds like a better plan of care. I then called and left a x2 with Elaine and then spoke with her. Her fax is [phone] and she will get back to me on what the team and administration says.
--- NOTE | 2017-03-23 12:34 | NUR ---
Pt refused therapy this date. Family at bedside pt very fatigued. ST will f/u.
--- NOTE | 2017-03-23 12:44 | NUR ---
I got a call from Elaine with admissions and she stated they will be able to accept pt if the plan is for family to do strictly comfort cares and yes the 14 days under Medicare A then after will be a private pay of $270 a day and will also have hospice involved. Elaine did say it is a separate campus because the other is strictly LTC and the address is [address] [place] [address] and it is only 5-6 minutes from the [place] one and the name of the assisted is [facility]. I did tell Elaine daughter is concerned that they just don't want him lying in bed but to get him up and move him around if able and she stated yes. Elaine also stated they will have pallative care follow him while he is there and the medical doctor accepting is Hernan Sandhu. Elaine also stated they could accept today or arrange something for tomorrow if family agrees. Elaine did also leave a vm for Onelia to give her a call as well. I will go discuss with Onelia and Sadia and update Elvis as well.
--- NOTE | 2017-03-23 13:58 | NUR ---
I then went and spoke of Onelia and updated her that [facility] will accept and the location and she states that is fine but still was questioning all the no feeding tube, therapy and iv antibiotics. I explained at this time she can talk with md again and pallative care but at this time looking at more skilled comfort cares and they are able to accept tomorrow or even today. I did encourage her to speak with Elaine and she stated she did. I updated Francia and she will go with Dr Ramirez when he goes in to see pt. WIll continue to follow.
--- NOTE | 2017-03-23 16:18 | NUR ---
Significant Event: Unable to assess patient orientation. Moans most of the time with any activity. Patient non-verbal. Does shake head/nod head appropriately. Follows commands most of the time. NIHSS= 11. VSS, on room air. Lung sounds inspiratory wheeze to slightly coarse. Incontinent of bowel and bladder, brief on. Scattered bruising noted throughout. Scab to L) elbow. IV to L) FA infusing NS at 100 mL/hr with intermittent antibiotics. Pureed diet with nectar liquids, 1:1 feeder. Follow up: NTU status.
--- NOTE | 2017-03-24 05:53 | NUR ---
Significant Event: Follow up: PATIENT NON VERBAL, BUT SHAKES HEAD YES AND NO, NO PAIN, VITAL SIGNS WNL, ONLY WANTS TO LAY ON RIGHT SIDE
[2017-03-24] MEDS ORDERED: TYLENOL325 MG PO/R (11:33)
[2017-03-24] MEDS ORDERED: MORPHINE 20MG/ML SL (11:34)
[2017-03-24] MEDS ORDERED: LEVSIN/SL0.125 MG SL (11:35)
[2017-03-24] MEDS ORDERED: ATIVAN 0.5MG0.5 MG SL (11:35)
--- NOTE | 2017-03-24 12:21 | NUR ---
I spoke with daughter along with Francia with pallative care this am and they are wanting to go to [facility] with comfort cares. I explained I do not want to [place] them and making sure this is what they want and it is he is not wanting to eat etc. They do not want any more iv antibiotics or treatment. I explained I spoke with Elaine this am at [facility] and they will accept today but need to know before noon. I discussed the ambulance again and can not guarantee payment or by private car and they wish to go by ambulance. I told them it could be from $[phone] but will do a medical necessity form that the md signs and they agree. I then called Elaine and left her a vm and did ID screen and faxed updates. Elaine called and they will accept today and time does not really matter. The nurse to nurse is [phone] and there does not need to be a doctor to doctor. I then called Gege with ems and time set up fro 1300 to [facility] in [place]. I then updated both Sadia and Onelia and they both agree to the plan. Francia called Dr Ramirez with the update and will come do orders. I updated nursing. I then faxed dc orders and called Elaine again with the time the ambulance will be leaving here. WIll assist as needed.
--- NOTE | 2017-03-24 12:38 | NUR ---
Significant Event: 76 year old male. DNR/DNI. KNA. Admitted to ICU 03/18. Lives alone. significant hx of smoking. admitted for ischemic stroke resulting in right sided weakness and aphasia. Also new diagnosis of lung cancer and large vegetation on mitral valve. EF is 20-30%. Alert. unable to obtain orientation. Mainly nonverbal but does moan and shake head yes/no seemingly appriately. Does follow commands. Bilateral hands are contracted. lung sounds have wheezes and does require suctioning PRN. Denies pain. Refused meds/food/liquids today. IV to left forearm saline locked. Ambulates with gait belt and two assist. Continent/incontinent of bowel and bladder. moderate BM this am. Plan to transfer to SNF per ambulance this aftn for hospice services.
== END 2017-03-24 14:30 | DRG 64 ==
LOC: GICU 13:25
PROVIDERS: Internal Medicine; ADMIT Internal Medicine
DX: I63.9 Cerebral infarction, unspecified (principal); G93.40 Encephalopathy, unspecified; I60.9 Nontraumatic subarachnoid hemorrhage, unspecified; E43 Unspecified severe protein-calorie malnutrition; I33.0 Acute and subacute infective endocarditis; I42.0 Dilated cardiomyopathy; D69.6 Thrombocytopenia, unspecified; C34.90 Malignant neoplasm of unspecified part of unspecified bronchus or lung; D72.829 Elevated white blood cell count, unspecified; Z51.5 Encounter for palliative care; I71.4 Abdominal aortic aneurysm, without rupture; J44.9 Chronic obstructive pulmonary disease, unspecified; R47.01 Aphasia; R59.0 Localized enlarged lymph nodes; R74.8 Abnormal levels of other serum enzymes; R91.8 Other nonspecific abnormal finding of lung field; Z66 Do not resuscitate; Z72.0 Tobacco use; Z78.9 Other specified health status; Z86.79 Personal history of other diseases of the circulatory system; I10 Essential (primary) hypertension
CPT/HCPCS: A9577; C9113; J2543; J3370; J7030; J7050

== ENCOUNTER → 2017-03-24 | Outpatient (CLI) | payer MEDICARE, OTHER ==
[~2017-03-24] MED LIST changes: +ATIVAN 0.5MG0.5 MG SL; +LEVSIN/SL0.125 MG SL; +MORPHINE 20MG/ML SL; +TOPROL XL25 MG PO; +TYLENOL325 MG PO/R
== END | disposition disaster alternative care site (69) ==
LOC: GAMB 14:39
DX: I63.9 Cerebral infarction, unspecified (principal); J44.9 Chronic obstructive pulmonary disease, unspecified; I95.9 Hypotension, unspecified; I05.9 Rheumatic mitral valve disease, unspecified; R29.810 Facial weakness; R47.81 Slurred speech; R29.898 Other symptoms and signs involving the musculoskeletal system; R47.01 Aphasia; Z85.118 Personal history of other malignant neoplasm of bronchus and lung; Z79.82 Long term (current) use of aspirin; Z79.899 Other long term (current) drug therapy
CPT/HCPCS: A0425; A0428